=== PATIENT | female | born 1990 | race Caucasian/White ===

== ENCOUNTER → 2016-10-16 | Outpatient (CLI) | payer OTHER | END | disposition home or self-care (01) | LOC: PETCFH 10:59 | PROVIDERS: ATTEND Internal Medicine Gastroenterology | DX: K30 Functional dyspepsia (principal) | CPT/HCPCS: 78264; A9541 ==

== ENCOUNTER → 2017-01-23 | Outpatient (CLI) | payer OTHER | END | disposition home or self-care (01) | LOC: RAD 09:19 | PROVIDERS: ATTEND Internal Medicine Gastroenterology | DX: K21.9 Gastro-esophageal reflux disease without esophagitis (principal); K31.84 Gastroparesis; F45.8 Other somatoform disorders; G43.109 Migraine with aura, not intractable, without status migrainosus; R05 Cough; E55.9 Vitamin D deficiency, unspecified; F41.9 Anxiety disorder, unspecified; E03.9 Hypothyroidism, unspecified; T78.1XXD Other adverse food reactions, not elsewhere classified, subsequent encounter | CPT/HCPCS: 74230 ==